=== PATIENT | female | born 1995 | race Caucasian/White ===

== ENCOUNTER 2023-01-23 07:20 | Emergency (ER) | payer BC, SELFPAY ==
[2023-01-23 07:31] VITALS: BP 111/84; PULSE 80; RESP 18; TEMP 37.1; O2SAT 97; BMI 31.6
--- NOTE | 2023-01-23 08:12 | ED.NAVMDI ---
HPI - Nausea/Vomiting/Diarrhea General Chief complaint: Nausea/Vomiting Stated complaint: chest pain, vomiting Time Seen by Provider: 01/23/23 07:59 History of Present Illness HPI Narrative: This 27-year-old female comes in reporting nausea with some vomiting over the past few days. She reports a sore throat and occasional cough. She has not had any fevers. She states that she now has some chest discomfort also. She arrives here with normal vital signs. Prior to this she was in good health. She does not report any diarrhea. She did have a surgery for a pilonidal cyst 5 months ago but has otherwise been in good health. Related Data Previous Rx's Medication Instructions Recorded pantoprazole 20 mg tablet,delayed 20 mg PO DAILY #20 tabs 01/23/23 release (Protonix) Allergies Allergy/AdvReac Type Severity Reaction Status Date / Time No Known Drug Allergies Allergy Verified 01/23/23 07:31 Review of Systems Status of ROS: Reports: 10 or more systems reviewed and unremarkable except as noted in History and below Narrative: Constitutional: No fevers, no weight gain or loss. Eyes: No discharge. No vision changes. HENT: No congestion, no sore throat, no ear pain. Cardiovascular: No palpitations. Respiratory: No shortness of breath, no wheezes, no cough. Gastrointestinal: No abdominal pain, no diarrhea. Nausea and vomiting. Genitourinary: No dysuria, no hematuria. Musculoskeletal: Normal range of motion. Skin: No rashes, no pruritis. Neurological: No dizziness, weakness, sensory change, speech change. Endo/Heme/Allergies: No bruising or bleeding. No polydipsia. Pysch: no suicidality, no anxiety, no insomnia. All other systems reviewed and are negative. PFSH PFS Social History Smoking Status: Never smoker Do you use any of these nicotine containing products: None Second hand tobacco smoke exposure: Yes How often do you have a drink containing alcohol: 2-4 times a month How many standard drinks containing alcohol do you have on a typical day: 1 or 2 How often do you have six or more drinks on one occasion: Never AUDIT-C Alcohol total score: 2 Non-prescribed substance use: denies use service: No Exam Narrative: Exam Narrative: Constitutional: Well-developed, well-nourished, no acute distress. HEENT: Normocephalic, atraumatic. Neck: Normal range of motion. Nontender. Supple. Heart: Regular. No murmurs. Normal rate. Intact distal pulses. Lungs: Clear to auscultation. No wheezes, rhonchi, or rales. Abdomen: Normal bowel sounds. Nontender. No rebound tenderness. Genitalia: Deferred. Back: No midline tenderness. Normal range of motion. Extremities: Normal range of motion. No injury. Skin: Intact. No rash. Warm. No erythema or pallor. Neurologic: No altered sensation. No weakness. Alert and oriented. Psychiatric: No suicidality. No anxiety or depression. No insomnia. Nursing notes and vitals signs are reviewed. Const: Vital Signs, click to edit/add: Vital Signs - 24 hr 01/23/23 07:31 01/23/23 09:18 01/23/23 09:26 Temperature 98.8 F Pulse Rate 92 Pulse Rate [Pulse Oximeter] 80 Respiratory Rate 18 20 Blood Pressure Blood Pressure [Ri ght Upper Arm] 111/84 Pulse Oximetry 97 97 Oxygen Delivery Me thod Room Air 01/23/23 09:30 01/23/23 09:31 Temperature Pulse Rate 88 78 Pulse Rate [Pulse Oximeter] Respiratory Rate Blood Pressure 114/74 Blood Pressure [Ri ght Upper Arm] Pulse Oximetry 97 97 Oxygen Delivery Me thod Course Vital Signs Vital signs: Initial Vital Signs Temperature 98.8 F 01/23/23 07:31 Temperature Source Temporal Artery Scan 01/23/23 07:31 Pulse Rate 80 01/23/23 07:31 Pulse Rhythm Regular 01/23/23 07:31 Respiratory Rate 18 01/23/23 07:31 Blood Pressure 111/84 01/23/23 07:31 Blood Pressure Mean 93 01/23/23 07:31 Blood Pressure Position Supine 01/23/23 07:31 Pulse Oximetry 97 01/23/23 07:31 Oxygen Delivery Method Room Air 01/23/23 07:31 Vital Signs Temperature 98.8 F 01/23/23 07:31 Pulse Rate 80 01/23/23 07:31 Respiratory Rate 18 01/23/23 07:31 Blood Pressure 111/84 01/23/23 07:31 Pulse Oximetry 97 01/23/23 07:31 Oxygen Delivery Method Room Air 01/23/23 07:31 Temperature 98.8 F 01/23/23 07:31 Pulse Rate 78 01/23/23 09:31 Respiratory Rate 20 01/23/23 09:26 Blood Pressure 114/74 01/23/23 09:31 Pulse Oximetry 97 01/23/23 09:31 Oxygen Delivery Method Room Air 01/23/23 07:31 MDM - Nausea/Vomiting/Diarrhea MDM Narrative Medical decision making narrative: This patient comes in with nausea and some vomiting and report of sore throat and discomfort in her chest. An IV was established where she did receive a L of normal saline and Zofran 4 mg. Lab results returned with reassuring findings. The patient states that she thinks that she may be having some heartburn or reflux symptoms and this seems likely. She is okay to be discharged home. I did provide a prescription for Protonix. Lab Data Labs: Lab Results 01/23/23 01/23/23 Range/Units 07:48 08:42 WBC 11.79 H (4.50-11.00) K/uL RBC 3.87 L (4.00-5.20) m/uL Hgb 12.2 (12.0-16.0) gm/dL Hct 37.6 (33.0-51.0) % MCV 97 (80-100) fL MCH 32 (26-34) pg MCHC 32 (32-36) gm/dL RDW Coeff of Enedelia 11.6 (11.5-15.5) % Plt Count 326 (140-440) K/uL Neut % (Auto) 82.9 H (42.0-72.0) % Lymph % (Auto) 9.2 L (20-44) % Lawrence % (Auto) 6.7 (0.0-11.0) % Eos % (Auto) 0.6 (0.0-7.0) % Baso % (Auto) 0.3 (0.0-3.0) % Neut # (Auto) 9.80 H (1.7-7.0) K/uL Lymph # (Auto) 1.10 (0.90-2.90) K/uL Lawrence # (Auto) 0.80 (0.00-0.90) K/UL Eos # (Auto) 0.10 (0.00-0.50) K/uL Baso # (Auto) 0.00 (0.00-0.30) K/uL Abs Immat Gran (auto) 0.00 (0.00-0.30) K/uL Imm/Tot Granulo (auto) 0.3 % Sodium 139 (135-149) mmol/L Potassium 3.8 (3.6-5.1) mmol/L Chloride 99 (96-114) mmol/L Carbon Dioxide 27 (20-32) mmol/L Anion Gap 13 (7-15) mEq/L BUN 9 (5-24) mg/dL Creatinine 0.5 (0.5-1.5) mg/dL Estimated Creat Clear 154.77 Estimated GFR 133 ml/min Glucose 99 (60-115) mg/dL Calcium 9.0 (8.4-10.6) mg/dL SARS-CoV-2 (PCR) Negative SARS-CoV-2 (Negative) Influenza Type A (PCR) Negative PCR FLU A (Negative) Influenza Type B (PCR) Negative PCR FLU B (Negative) RSV (PCR) Negative PCR RSV (Negative) ECG Data Attestation: I personally reviewed and interpreted this ECG as follows: Interpretation: Normal sinus rhythm. Rate is 82 beats per minute. There are no ST or T-wave abnormalities. Discharge Plan Discharge Clinical Impression: Gastroenteritis Patient Disposition: Home, Self-Care Condition: Stable Additional Instructions: Take medication as needed and directed. Increase diet as tolerated. Follow up with MD return if worsening. Prescriptions: New pantoprazole [Protonix] 20 mg tablet,delayed release (DR/EC) 20 mg PO DAILY Qty: 20 2RF Follow Up/Referrals: Provider,Not a Local [Primary Care Provider] - Stand Alone Forms: [employer] Info Instructions
[2023-01-23 08:39] LABS: PCR FLU A Negative PCR FLU A (Negative); PCR FLU B Negative PCR FLU B (Negative); PCR RSV Negative PCR RSV (Negative)
[2023-01-23 08:40] LABS: SARS PCR* Negative SARS-CoV-2 (Negative)
[2023-01-23] MEDS: 0.9 % SODIUM CHLORIDE 1000 ml 1,000 ML IV (08:50)
[2023-01-23] MEDS: KETOROLAC 30 MG/ML inj IVP (08:52)
[2023-01-23] MEDS: ONDANSETRON 2 MG/ML inj 4 MG IVP (08:53)
[2023-01-23 09:06] LABS: Basophils Percent Auto 0.3 % (0.0-3.0); Eosinophils Percent Auto 0.6 % (0.0-7.0); Hematocrit 37.6 % (33.0-51.0); Hemoglobin* 12.2 gm/dL (12.0-16.0); Immature Granulocytes Pct Auto 0.3 %; Lymphocytes Percent Auto 9.2 % (20-44); Mean Corpuscular HGB Conc 32 gm/dL (32-36); Mean Corpuscular Hemoglobin 32 pg (26-34); Mean Corpuscular Volume 97 fL (80-100); Monocytes Percent Auto 6.7 % (0.0-11.0); Neutrophils Percent Auto 82.9 % (42.0-72.0); Platelet Count* 326 K/uL (140-440); RDW Coefficient of Variation % 11.6 % (11.5-15.5); Red Blood Count 3.87 m/uL (4.00-5.20); White Blood Count* 11.79 K/uL (4.50-11.00)
[2023-01-23 09:07] LABS: Slide Review Reflex No
[2023-01-23 09:18] VITALS: PULSE 92; O2SAT 97
[2023-01-23 09:25] LABS: Chloride* 99 mmol/L (96-114); Potassium* 3.8 mmol/L (3.6-5.1); Sodium* 139 mmol/L (135-149)
[2023-01-23 09:26] VITALS: RESP 20
[2023-01-23 09:27] LABS: Creatinine* 0.5 mg/dL (0.5-1.5); Est. Creatinine Clearance* 154.77; Estimated Glomerular Filt Rate 133 ml/min
[2023-01-23 09:28] LABS: Anion Gap 13 mEq/L (7-15); Blood Urea Nitrogen* 9 mg/dL (5-24); Carbon Dioxide* 27 mmol/L (20-32); Glucose* 99 mg/dL (60-115)
[2023-01-23 09:30] VITALS: PULSE 88; O2SAT 97
[2023-01-23 09:31] VITALS: BP 114/74; PULSE 78; O2SAT 97
== END 2023-01-23 10:22 | disposition home or self-care (01) ==
PROVIDERS: Family Medicine; Emergency Provider Emergency Medicine Emergency Medical Services
DX: K52.9 Noninfective gastroenteritis and colitis, unspecified (principal)
CPT/HCPCS: 36415; 80048; 85025; 87631; 93005; 96374; 96375; 99283; 99284; J1885; J2405; J7030

== ENCOUNTER 2024-02-24 19:00 | Emergency (ER) | payer OTHER, SELFPAY ==
[2024-02-24 19:21] VITALS: BP 127/87; PULSE 99; RESP 20; TEMP 36.9; O2SAT 98; BMI 33.3
[2024-02-24 19:30] LABS: Appearance Urine Cloudy (Clear); Bilirubin Urine Negative (Negative); Blood Urine Trace-intact (Negative); Color Urine Yellow (Yellow); Glucose Urine Negative (Negative); Ketones Urine Negative (Negative); Leukocyte Esterase Urine 1+ (Negative); Nitrite Urine Negative (Negative); Protein Urine Negative (Negative); Specific Gravity Urine 1.025 (1.000-1.030); Urobilinogen Urine 0.2 (0.2-1.0)
[2024-02-24 19:32] LABS: Ur HCG Qualitative* Negative (Negative)
--- NOTE | 2024-02-24 19:32 | ED_ITS ---
HPI - Female Genitourinary General Chief complaint: Urogenital Problems, Female Stated complaint: Possible kidney infection Time Seen by Provider: 02/24/24 19:02 History of Present Illness HPI Narrative: This 28-year-old female comes in reporting dysuria symptoms, vaginal itching and whitish discharge, and some right flank pain. She states that some of these symptoms began as much as 3 weeks ago. She did use an [id number] cream to treat for yeast infection without much relief. She does not have any personal history of kidney stones but states there is a family history of such. She does not report any fever, nausea, vomiting, or diarrhea. Related Data Previous Rx's ?Medication ?Instructions ?Recorded pantoprazole 20 mg tablet,delayed 20 mg PO DAILY #20 tabs 01/23/23 release (Protonix) Allergies Allergy/AdvReac Type Severity Reaction Status Date / Time No Known Drug Allergies Allergy Verified 01/23/23 07:31 Review of Systems Status of ROS: Reports: 10 or more systems reviewed and unremarkable except as noted in History and below Narrative: Constitutional: No fevers, no weight gain or loss. Eyes: No discharge. No vision changes. HENT: No congestion, no sore throat, no ear pain. Cardiovascular: No chest pain, no palpitations. Respiratory: No shortness of breath, no wheezes, no cough. Gastrointestinal: No abdominal pain, no vomiting, no diarrhea. She reports some right flank and right low back pain that comes and goes in sometimes seems to be associated with voiding urine. Genitourinary: No dysuria, no hematuria. Musculoskeletal: Normal range of motion. Skin: No rashes, no pruritis. Neurological: No dizziness, weakness, sensory change, speech change. Endo/Heme/Allergies: No bruising or bleeding. No polydipsia. Pysch: no suicidality, no anxiety, no insomnia. All other systems reviewed and are negative. PFSH PFS Social History Smoking Status: Never smoker Do you use any of these nicotine containing products: None Second hand tobacco smoke exposure: Yes How often do you have a drink containing alcohol: 2-4 times a month How many standard drinks containing alcohol do you have on a typical day: 1 or 2 How often do you have six or more drinks on one occasion: Never AUDIT-C Alcohol total score: 2 Non-prescribed substance use: denies use service: No Exam Narrative: Exam Narrative: Constitutional: Well-developed, well-nourished, no acute distress. HEENT: Normocephalic, atraumatic. Neck: Normal range of motion. Nontender. Supple. Heart: Regular. No murmurs. Normal rate. Intact distal pulses. Lungs: Clear to auscultation. No chest discomfort. No wheezes, rhonchi, or rales. Abdomen: Normal bowel sounds. Nontender. No rebound tenderness. Genitalia: Deferred. Back: No midline tenderness. Normal range of motion. Extremities: Normal range of motion. No injury. Skin: Intact. No rash. Warm. No erythema or pallor. Neurologic: No altered sensation. No weakness. Alert and oriented. Psychiatric: No suicidality. No anxiety or depression. No insomnia. Nursing notes and vitals signs are reviewed. Const: Vital Signs, click to edit/add: Vital Signs - 24 hr 02/24/24 19:21 Temperature 98.5 F Pulse Rate [Left P ulse Oximeter] 99 Respiratory Rate 20 Blood Pressure [Ri ght Forearm] 127/87 Pulse Oximetry 98 Oxygen Delivery Me thod Room Air Course Vital Signs Vital signs: Initial Vital Signs Temperature 98.5 F 02/24/24 19:21 Temperature Source Temporal Artery Scan 02/24/24 19:21 Pulse Rate 99 02/24/24 19:21 Pulse Rhythm Regular 02/24/24 19:21 Respiratory Rate 20 02/24/24 19:21 Blood Pressure 127/87 02/24/24 19:21 Blood Pressure Mean 100 02/24/24 19:21 Blood Pressure Position Sitting 02/24/24 19:21 Pulse Oximetry 98 02/24/24 19:21 Oxygen Delivery Method Room Air 02/24/24 19:21 Vital Signs Temperature 98.5 F 02/24/24 19:21 Pulse Rate 99 02/24/24 19:21 Respiratory Rate 20 02/24/24 19:21 Blood Pressure 127/87 02/24/24 19:21 Pulse Oximetry 98 02/24/24 19:21 Oxygen Delivery Method Room Air 02/24/24 19:21 Temperature 98.5 F 02/24/24 19:21 Pulse Rate 99 02/24/24 19:21 Respiratory Rate 20 02/24/24 19:21 Blood Pressure 127/87 02/24/24 19:21 Pulse Oximetry 98 02/24/24 19:21 Oxygen Delivery Method Room Air 02/24/24 19:21 MDM - Female Genitourinary MDM Narrative Medical decision making narrative: This patient comes in with dysuria and abdominal symptoms as described above. A urinalysis and vaginitis probe is obtained and returns positive for urinary tract infection as well as evidence of trichomoniasis and bacterial vaginosis. There is also pending results on gonorrhea and chlamydia. The patient has normal vital signs and is in no acute distress. I did provide [facility] prescriptions for Flagyl which should cover the trichomoniasis and bacterial vaginosis and another prescription for doxycycline which should cover urinary infection symptoms and possibility of other potential positive results yet pending. Lab Data Labs: Lab Results 02/24/24 02/24/24 Range/Units 19:08 19:39 Urine Color Yellow (Yellow) Urine Appearance Cloudy A (Clear) Urine pH 6.0 (5.0-8.5) Ur Specific [place] 1.025 (1.000-1.030) Urine Protein Negative (Negative) Urine Glucose (UA) Negative (Negative) Urine Ketones Negative (Negative) Urine Blood Trace-intact A (Negative) Urine Nitrite Negative (Negative) Urine Bilirubin Negative (Negative) Urine Urobilinogen 0.2 (0.2-1.0) Ur Leukocyte Esterase 1+ A (Negative) Urine RBC 0-2 (0-2) Urine WBC 10-25 A (0-5) Ur Squamous Epith Cells Few (None-Few) Urine Bacteria Moderate A (None) Urine Trichomonas Few A (None) Urine HCG, Qual Negative (Negative) Vaginal Bacterial Vaginosis POSITIVE A (Negative) Vaginal Yanet species NOT DETECTED (No Detected) Vag C. glabrata/krusei NOT DETECTED (No Detected) Vag T. vaginalis DETECTED A (No Detected) C.trachomatis Ampl DNA Cancelled N.gonorrhoeae Ampl DNA Cancelled Discharge Plan Discharge Clinical Impression: Urinary tract infection, Bacterial vaginosis, Trichomoniasis Additional Instructions: Take medication as prescribed. Follow up with MD return if worsening. Prescriptions: No Action pantoprazole [Protonix] 20 mg tablet,delayed release (DR/EC) 20 mg PO DAILY Qty: 20 2RF Follow Up/Referrals: Provider,Not a Local [Primary Care Provider] -
--- OUTSIDE RECORDS SUMMARY | 2024-02-24 19:39 | XMS_ITS ---
Author Organization [facility] Address [address] [place] [address] Care Team Providers Care Monomer Recovery Supervisor Name Role Phone Unavailable Unavailable Unavailable Surgery Details Not on file Complications Check Surgery Details section. Procedure Estimated Blood Loss Check Surgery Details section. Procedure Findings Check Surgery Details section. Procedure Specimens Taken Check Surgery Details section.
--- OUTSIDE RECORDS SUMMARY | 2024-02-24 19:39 | XMS_ITS | Clinical Summary ---
Author Organization [facility] Address [address] [place] [address] Care Team Providers Care Assistant Credit Manager Name Role Phone Elsewhere, Pcp Primary Care Provider Unavailabl e Source Comments Patient records contain information from all sites at [facility]. For routine questions regarding patient records, call [phone] during business hours, M-F 8:00 AM - 5:00 PM Central Time. Record requests for emergency care only can be directed to [phone] at any time.[facility] Allergies Active Allergy Reactions Criticality Noted Date Comments Isothiazolinones Rash 09/21/2019 Perfume Rash 09/21/2019 Medications valACYclovir (VALTREX) 1000 mg tablet Take 2 tablets (2000mg) by mouth twice daily for 1 day as needed for cold sores. 12 tablet 1 2 Active acetaminophen (TYLENOL) 325 mg tablet Take 650 mg by mouth every 6 (six) hours as needed for pain. Active cyclobenzaprine (FLEXERIL) 10 mg tablet Take 1 tablet (10 mg total) by mouth 3 (three) times a day for 15 days. 45 tablet 3 Active gabapentin (NEURONTIN) 100 mg capsule Take 1 capsule (100 mg total) by mouth 3 (three) times a day. 90 capsule 3 Active cyclobenzaprine (FLEXERIL) 10 mg tablet Take 1 tablet (10 mg total) by mouth 3 (three) times a day as needed for muscle spasms. 30 tablet 3 Active pantoprazole (PROTONIX) 20 mg EC tablet Take 20 mg by mouth daily. 3 Active omeprazole (PriLOSEC) [address] capsule Take 1 capsule (20 mg total) by mouth every morning before breakfast for 10 days. 10 capsule 4 Active Active Problems Problem Noted Date Diagnosed Date Cyst Pilonidal 10/17/2022 Nodule Subcutaneous 07/18/2022 Overview (07/18/2022): Added automatically from request for surgery [id number] Encounters Date Type Department Care Team Description 02/17/2024 Clinical Communication Department of Family Medicine, [facility], in [place] [address] [place] [address] Angelica Colunga APRN, C.N.P., M.S.N. PCP (Change) from Last 3 Months Immunizations Name Administration Dates Next Due 4vHPV (discontinued) 11/12/2013,08/12/2013,11/24 DTaP (Infanrix, [employer]) 11/24/2003 IPV 11/24/2003 MMR 11/24/2003 Tdap 01/15/2022,08/23/2010 SHAN 08/23/2010 influenza trivalent vaccine (6 months and older)(PF) 03/20/2011 Family History Medical History Relation Name Comments Alcohol abuse Father Diabetes Father Diabetes Maternal Grandfather Relation Name Status Comments Father Maternal Grandfather Social History Tobacco Use Types Packs/Day Years Used Date Smoking Tobacco: Former Cigarettes Q uit: 10/05/2018 E-cigarettes Smokeless Tobacco: Never Tobacco Cessation:Counseling Given: No Alcohol Use Standard Drinks/Week Comments Yes 3 (1 standard drink = 0.6 oz pur e alcohol) Humiliation, Afraid, Rape, and Kick questionnair e Answer Date Recorded Within the last year, have y ou been afraid of your partner or ex-partner? No 05/05/2022 Within the last year, have y ou been humiliated or emotionally abused in other ways by your partner or ex-partner? No Within the last year, have y ou been kicked, hit, slapped, or otherwise physically hurt by your partner or ex-partner? No 05/05/2022 Within the last year, have y ou been raped or forced to have any kind of sexual activity by your partner or ex-partner? No 05/05/2022 Social Connection and Isolat ion Panel [NHANES] Answer Date Recorded In a typical week, how many times do you talk on the phone with family, friends, or neighbors? More than three times a week 05/05/2022 How often do you get togethe r with friends or relatives? Twice a week 05/05/2022 How often do you attend chur or mosque services? Never 05/05/2022 Do you belong to any clubs o r organizations such as restorationist groups, unions, fraternal or athletic groups, or school groups? No 05/05/2022 How often do you attend meet ings of the clubs or organizations you belong to? Never 05/05/2022 Are you , , di vorced, , never , or living with a partner? Never 05/05/2022 AUDIT-C Answer Date Recorded Q1: How often do you have a drink containing alc ohol? 2-4 times a month 05/05/2022 Q2: How many drinks containi ng alcohol do you have on a typical day when you are drinking? 3 or 4 05/05/2022 Q3: How often do you have si x or more drinks on one occasion? Never 05/05/2022 Overall Financial Resource Strain (CARDIA) Answe r Date Recorded How hard is it for you to pa y for the very basics like food, housing, medical care, and heating? Not hard at all 05/05/2022 PHQ-2 Answer Date Recorded PHQ-2 Score 2 06/11/2022 [facility] - Occupational Stress Questionnaire Answer Date Recorded Do you feel stress - tense, restless, nervous, or anxious, or unable to sleep at night because your mind is troubled all the time - these days? To some extent 05/05/2022 Exercise Vital Sign Answer Date Recorde d On average, how many days pe r week do you engage in moderate to strenuous exercise (like a brisk walk)? 5 days 05/05/2022 On average, how many minutes do you engage in exercise at this level? 30 min 05/05/2022 Hunger Vital Sign Answer Date Recorded Within the past 12 months, y ou worried that your food would run out before you got the money to buy more. Never true 05/05/19 Within the past 12 months, t he food you bought just didn't last and you didn't have money to get more. Never true 05/05/2022 PRAPARE - Transportation Answer Date Re corded In the past 12 months, has l ack of transportation kept you from medical appointments or from getting medications? No 04/08 In the past 12 months, has l ack of transportation kept you from meetings, work, or from getting things needed for daily living? No 05/05/2022 Housing Stability Vital Sign Answer Joel e Recorded In the last 12 months, was t here a time when you were not able to pay the mortgage or rent on time? Yes 05/05/2022 In the last 12 months, how many places have you lived? 1 05/05/2022 In the last 12 months, was t here a time when you did not have a steady place to sleep or slept in a senior care (including now)? No 05/05/2022 Nutrition Answer Date Recorded On average, how many serving s of fruits and vegetables do you eat per day (serving size is equal to 1 cup or approximately the size of a tennis ball)? 2-3 05/05/2022 Dental Answer Date Recorded Dental: Regular Dentist Yes 05/05/19 Employment Answer Date Recorded Employment status Employed and actively working without restrictions 05/05/2022 Education Answer Date Recorded What is the highest level of school you have completed or the highest degree you have received? 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 Sexual Orientation Straight 05/05/2022 4: 23 PM BUILDING WRECKER Last Filed Vital Signs Vital Sign Reading Time Taken Comments Blood Pressure 149/75 10/07/2023 4:59 PM CDT Pulse 85 10/07/2023 4:59 PM CDT Temperature 36.6 C (97.9 F) 10/07/2023 4:59 PM CDT Respiratory Rate 16 10/07/2023 4:59 PM CDT Oxygen Saturation 98% 10/07/2023 4:59 PM CDT Inhaled Oxygen Concentration - - Weight 93 kg (205 lb 0.4 oz) 10/07/2023 4:58 PM CDT Height 165.1 cm (5' 5) 08/09/2022 9:39 AM CDT Body Mass Index 34.12 08/09/2022 9:39 AM CDT Plan of Treatment Health Maintenance Due Date Last Done Comments Cervical/Vaginal Cancer Screening 1997 Hepatitis C Screening 1997 Depression Screening (Annual PHQ-2) 04/07/2023 COVID-19 Vaccine ( season) 2023 Influenza Vaccine (#1) 2024 03/20/2011 DTaP,Tdap,and Td Vaccines (7 - Td or Tdap) 01/16/2032 01/15/2022, 08/23/2010, 11/24/2003, Additional history exists Hepatitis B Vaccines Completed 12/01/1998, 03/22/1998, 1997 IPV Vaccines Completed 11/24/2003, 10/1999, 03/22/1998, Additional history exists Varicella Vaccines Completed 08/23/2010, 12/01/1998 HPV Vaccines Completed 11/12/2013, 11/2013, 11/25/2011 Chlamydia and Gonorrhea Screening Discontinued 12/12/2020 Pneumococcal vaccine (0-64 years) Aged Out No longer eligible based on patient's age to complete this topic Procedures Procedure Name Priority Date/Time Associated Diagnosis Comments CHLAMYDIA/GONORRHOE AE AMPLIFIED RNA STAT 12/12/2020 11:54 PM CDT from Last 3 Months or Most Recently Relevant to Health Maintenance Results * Chlamydia / Gonorrhoeae Amplified RNA (12/12/2020 11:54 PM CDT) Source Urine, Urine, First Voided 12/13/2020 8:19 PM CDT MKTO Chlamydia trachomatis amplified RNA Negative Negative 12/13/2020 8:19 PM CDT MKTO Source Urine, Urine, First Voided 12/13/2020 8:19 PM CDT MKTO Neisseria gonorrhoeae amplified RNA Negative Negative 12/13/2020 8:19 PM CDT MKTO Varies (Urine, First Voided) 12/12/2020 11:54 PM CDT 12/13/2020 2:31 PM CDT Edita Alivia Quintana APRN, C.N.P., D.N.P. LAB MICROBIOLO GY - GENERAL ORDERABLES Final Result [facility] [address] [place] [address], [facility] MKTO [facility] [place] [address] [place] [address] from Last 3 Months or Most Recently Relevant to Health Maintenance Insurance [facility] [place] [address] Care Teams Assistant Credit Manager Relationship Specialty Start Date End Date Elsewhere, Pcp PCP - General Internal Medicine 02/17/24
--- OUTSIDE RECORDS SUMMARY | 2024-02-24 19:39 | XMS_ITS | Clinical Summary ---
Author Organization [facility] Address [place], [place] [address] Care Team Providers Care Client Service Coordinator Name Role Phone Sherri Ceballos MD Primary Care Provider Pattie Jordan RACEBOOK WRITER Unavailable Megan Jiménez MD Unavailable Allergies Active Allergy Reactions Criticality Noted Date Comments Isothiazolinones Rash 09/21/2019 Perfume Rash 09/21/2019 Medications Medication Sig Dispensed Refills Start Date End Date Status acetaminophen (TYLENOL) 325 mg tablet Take 650 mg by mouth every 6 hours if needed. Active esomeprazole (NEXIUM) 40 mg capsuleIndications:Chr onic GERD Take 1 Capsule (40 mg) by mouth once daily before a meal. 90 Capsule 10/30/2023 Active ondansetron (ZOFRAN ODT) 4 mg disintegrating tabletIndications:Naus ea and vomiting, unspecified vomiting type Place 1 Tablet (4 mg) on the tongue every 8 hours if needed for Nausea/Vomiting . 30 Tablet 12/02/2023 Active Active Problems Problem Noted Date Diagnosed Date Attention deficit disorder with hyperactivity(31 4.01) 02/24/2007 Adjustment disorder with mixed anxiety and depre ssed mood 02/18/2007 Overview (02/18/2007): Evaulating for ADHD Encounters Date Type Department Care Team Description 11/27/2023 Telephone [facility] [address] [place], [place] [id number] Sherri Ceballos MD Letter (FOR WORK ) 11/27/2023 Nurse Triage [facility] [address] [facility] [address] Sherri Ceballos MD Error-please disregard (ERROR/) 11/25/2023 11:10 AM CDT Telemedicine [facility] [address] [place] [phone] Esmer Iniguez NP Telehealth (COVID-19 positive. ) 11/25/2023 Telephone [facility] [address] [place] [phone] Esmer Iniguez NP Letter For Work (Off work due to COVID-19) 11/25/2023 Travel from Last 3 Months Immunizations Name Administration Dates Next Due DTaP 11/24/2003, 9,03/22/1998,1997 DTaP-HIB (TriHIBIT) 06/12/1999 HIB-HepB (Comvax) 12/01/1998,03/22/1998,12/28/18 98 Human Papilloma Virus Vaccine 11/25/2011 Human Papilloma Virus Vaccin e, Unspecified 11/12/2013,08/12/2013 Inactivated Polio Vaccine 11/24/2003,10/1999,03/22/1998,1997 Influenza, IIV3 (Age >=3 years) 03/20/2011 MMR 11/24/2003,02/20/1999 Tdap 08/23/2010 Varicella Vaccine 08/23/2010,12/01/1998 Family History Medical History Relation Name Comments Alcohol/Drug Father Heart Disease Maternal Grandfather DC Good Health Mother Relation Name Status Comments Father Maternal Grandfather Mother Social History Tobacco Use Types Packs/Day Years Used Date Smoking Tobacco: Never Smokeless Tobacco: Never Tobacco Cessation:Counseling Given: Yes Alcohol Use Standard Drinks/Week Comments Yes 1 (1 standard drink = 0.6 oz pur e alcohol) occasional PHQ-2 Answer Date Recorded PHQ-2 TOTAL SCORE 0 10/30/2023 Social Connections Answer Date Recorded Frequency of Communication with Friends and Fami ly Not on file 06/27/2023 Sex and Gender Information Value Date Recorded Sex Assigned at Not on file Gender Identity Not on file Sexual Orientation Not on file Obstetrics History Last Filed Vital Signs Vital Sign Reading Time Taken Comments Blood Pressure 111/75 10/30/2023 1:37 PM CDT Pulse 86 10/30/2023 1:37 PM CDT Temperature 36.7 C (98 F) 08/18/2023 3:12 PM CDT Respiratory Rate 16 08/18/2023 3:12 PM CDT Oxygen Saturation 98% 10/30/2023 1:37 PM CDT Inhaled Oxygen Concentration - - Weight 93.7 kg (206 lb 9.6 oz) 10/30/2023 1:37 P M CDT Height 165.1 cm (5' 5) 08/05/2023 9:40 AM CDT Body Mass Index 34.38 08/05/2023 9:40 AM CDT Plan of Treatment Health Maintenance Due Date Last Done Comments HIV for age 15-65 2012 Hepatitis C screening for ag e 18-79 11/16/2015 Pap test for age 21-65 2018 Tetanus booster 08/23/2020 08/23/2010 COVID-19 vaccine series ( season) 2023 Influenza for age 9-49 12/07/2023 03/20/2011 BMI (ht and wt on same day) for age 18+ 08/04/2024 08/05/2023, 06/27/2023 Depression screening for age 12+ 10/29/2024 10/30/2023 Tdap Completed 08/23/2010 HPV series for age 9-26 Completed 11/13/19 14, 08/12/2013, 11/25/2011 Pneumococcal series for age 6-64 Aged Out No longer eligible b ased on patient's age to complete this topic Care Teams Client Service Coordinator Relationship Specialty Start Date End Date Sherri Ceballos MD [address] [place] [address] PCP - General Family Practice 05/23/11 Pattie Jordan NP [address] [place] [address] Nurse Practitioner Hematology and Oncology 08/21/23 Megan Jiménez MD [address] [place] [address] Medical Oncologist Hematology and Oncology 08/21/23
--- OUTSIDE RECORDS SUMMARY | 2024-02-24 19:39 | XMS_ITS | Referral Summary ---
Author Organization [facility] Address [address] [place] [address] Care Team Providers Care Paperhanger And Painter Name Role Phone Elsewhere, Pcp Primary Care Provider Unavailabl e Source Comments Patient records contain information from all sites at [facility]. For routine questions regarding patient records, call [phone] during business hours, M-F 8:00 AM - 5:00 PM Central Time. Record requests for emergency care only can be directed to [phone] at any time.[facility] Encounters Date Type Department Care Team Description 02/17/2024 Clinical Communication Department of Family Medicine, [facility], in [address] [phone] Angelica Colunga APRN, C.N.P., M.S.N. PCP (Change) from Last 3 Months Allergies Active Allergy Reactions Criticality Noted Date [...] (07/18/2022): Added automatically from request for surgery [id number] Immunizations Name Administration Dates Next Due 4vHPV (discontinued) 11/12/2013,08/12/2013,11/24 DTaP (Infanrix, Tripedia) 11/24/2003 IPV 11/24/2003 MMR 11/24/2003 Tdap 01/15/2022,08/23/2010 SHAN 08/23/2010 influenza trivalent vaccine (6 months and older)(PF) 03/20/2011 Social History Tobacco Use Types Packs/Day Years [...] 05/05/2022 How often do you attend chur ch or sabianist services? Never 05/05/2022 Do you belong to any clubs o r organizations such as synagogue groups, unions, fraternal or athletic groups, or [...] Answer Date Recorded PHQ-2 Score 2 06/11/2022 [facility] - Occupational Stress Questionnaire Answer Date Recorded [...] the money to buy more. Never true 01/29/20 23 Within the past 12 months, t he [...] place to sleep or slept in a correction (including now)? No 05/05/2022 Nutrition Answer Date [...] Sex Assigned at Female 05/05/2022 4:23 PM MIDDLEWARE SYSTEMS ARCHITECT Legal Sex Female 10:12 PM MIDDLEWARE SYSTEMS ARCHITECT Gender Identity Female 05/05/2022 4:23 PM MIDDLEWARE SYSTEMS ARCHITECT Sexual Orientation Straight 05/05/2022 4: 23 PM MIDDLEWARE SYSTEMS ARCHITECT Last Filed Vital Signs Vital Sign Reading [...] 08/09/2022 9:39 AM CDT Plan of Treatment Not on file Procedures Procedure Name Priority Date/Time Associated Diagnosis [...] PM CDT 12/13/2020 2:31 PM CDT Edita Quintana APRN, C.N.P., D.N.P. LAB MICROBIOLO GY - GENERAL ORDERABLES Final Result [facility] [address] [place] [address], [facility] [place] [address] [place] [phone] from Last 3 Months or Most Recently Relevant to Health Maintenance Insurance [facility] [place] [address] Care Teams Paperhanger And Painter Relationship Specialty Start Date End Date Elsewhere, Pcp PCP - General Internal Medicine 02/17/24
--- OUTSIDE RECORDS SUMMARY | 2024-02-24 19:40 | XMS_ITS | Encounter Summary ---
Author Organization [facility] Address [address] [place] [address] Care Team Providers Care Cardiovascular Technician Name Role Phone Elsewhere, Pcp Primary Care Provider Unavailabl e Reason for Visit * Reason Onset Date Comments PCP 02/17/2024 Change Encounter Details Date Type Department Care Team ([facility] st Contact Info) Description 02/17/2024 Clinical Communication Department of Family Medicine, [facility], in [address] [phone] Angelica Colunga APRN, C.N.P., M.S.N. [address] [place] [phone] PCP (Change) Social History Tobacco Use Types Packs/Day Years Used Date Smoking Tobacco: Former Cigarettes Q uit: 10/05/2018 E-cigarettes Smokeless Tobacco: Never Alcohol Use Standard Drinks/Week Comments Yes 3 [...] How often do you attend chur or baptist services? Never 05/05/2022 Do you belong to any clubs o r organizations such as taoism groups, unions, fraternal or athletic groups, or [...] Answer Date Recorded PHQ-2 Score 2 06/11/2022 [facility] - Occupational Stress [...] place to sleep or slept in a retirement (including now)? No 05/05/2022 Nutrition Answer Date [...] Sex Assigned at Female 05/05/2022 4:23 PM SENIOR DATA INTEGRATION DEVELOPER Legal Sex Female 10:12 PM SENIOR DATA INTEGRATION DEVELOPER Gender Identity Female 05/05/2022 4:23 PM SENIOR DATA INTEGRATION DEVELOPER Sexual Orientation Straight 05/05/2022 4: 23 PM SENIOR DATA INTEGRATION DEVELOPER documented as of this encounter Plan of Treatment Not on file documented as of this encounter Visit Diagnoses Not on filedocumented in this encounter Care Teams Cardiovascular Technician Relationship Specialty Start Date End Date Elsewhere, Pcp PCP - General Internal Medicine 02/17/24 documented as of this encounter
[2024-02-24 19:44] LABS: RBC Urine 0-2 (0-2)
[2024-02-24 19:45] LABS: Bacteria Urine Moderate; Squamous Epithelial Cell Urine Few (None-Few); Trichomonas Urine Few
[2024-02-24 20:49] LABS: Bacterial Vaginosis* POSITIVE (Negative); Candida glab/krus NOT DETECTED (No Detected); Candida species NOT DETECTED (No Detected); Trichomonas vaginalis DETECTED (No Detected)
[2024-02-24 21:19] LABS: Chlamydia DNA Amplified* NOT DETECTED (No Detected); GC DNA Amplified* NOT DETECTED (No Detected)
== END 2024-02-24 21:18 | disposition home or self-care (01) ==
LOC: ED 19:38
PROVIDERS: Emergency Provider Emergency Medicine Emergency Medical Services
DX: N39.0 Urinary tract infection, site not specified (principal); N76.0 Acute vaginitis; A59.9 Trichomoniasis, unspecified
CPT/HCPCS: 81001; 81003; 81025; 81513; 87086; 87481; 87491; 87591; 87661; 99284

== ENCOUNTER 2024-10-20 22:27 | Emergency (ER) | payer MEDICAID, SELFPAY ==
--- OUTSIDE RECORDS SUMMARY | 2024-07-04 19:00 | XMS_ITS | Continuity of Care Document ---
Author Organization [facility] Address [address] [address] [place] [address] Phone Care Team Providers Care Pad Making Machine Operator Name Role Phone Link Joseluis YANCEY Unavailable Unavailable Procedures Procedure Date Level Iv-surg Path Gross/micro Advance Directives Directive Yes / No Effective Date File Name No Information Encounters Encounter Description Practice Location Reason(s) For Visit Diagnoses Date Provider Providers Copied on Encounter [facility], [address] [address], [place], [place], [id number], [place] tel:[phone] [facility] Path Lab No Information Link MD Huggins. [address] [facility], [place], [place], [id number], [place]. tel:[phone] Referring Provider: Jia Munguia MD, [address] [place] [address], [address]. tel:[phone] Family History Family Member Type Diagnosis Age At Onset No Information Payers Payer name Insurance type Covered democrat ID Izaiah wills(s) [facility] [id number] Social History Type Description Quantity Date Captured Comments Sex Female Smoking Status No Information Chief Complaint And Reason For Visit No Information Reason For Referral Reason For Referral No Information History Of Present Illness Encounter Date Complaint History Of Prese nt Illness No Information Functional Status Date Functional Assessmen t No Information Instructions Date Instruction Additional Infor mation No Information Assessments Type Assessment Date No Information Patient Care Teams Name Effective Dates (start - stop) Status Members No Information
--- OUTSIDE RECORDS SUMMARY | 2024-07-04 19:00 | XMS_ITS | Continuity of Care Document ---
Author Organization [facility] Address [address] [address] [place] [address] Phone Care Team Providers Care Travel Agent Name Role Phone Link Joseluis YANCEY Unavailable Unavailable Procedures Procedure Date Level Iv-surg Path Gross/micro Advance Directives Directive Yes / No Effective Date File Name No Information Encounters Encounter Description Practice Location Reason(s) For Visit Diagnoses Date Provider Providers Copied on Encounter [facility], [address] [address], [place], [place], [id number], [place] tel:[phone] [facility] Path Lab No Information Link MD Huggins. [address] [facility], [place], [place], [id number], [place]. tel:[phone] Referring Provider: Jia Munguia MD, [address] [place] [address], [address]. tel:[phone] Family History Family Member Type Diagnosis Age At Onset No Information Payers Payer name Insurance type Covered constitution party ID Izaiah wills(s) [facility] [id number] Social History Type Description Quantity Date Captured [...]
--- OUTSIDE RECORDS SUMMARY | 2024-10-06 20:42 | XMS_ITS | Encounter Summary ---
Author Organization [facility] Address [address] [place] [address] Care Team Providers Care Research Compliance Specialist Name Role Phone Elsewhere, Pcp Primary Care Provider Unavailabl e Reason for Visit * Reason Comments Painful Urination Patient reports burn ing with urination since Friday night. Encounter Details Date Type Department Care Team (Late st Contact Info) Description 10/06/2024 8:42 PM CDT - 10/06/2024 9:20 PM CDT Emergency [place] [facility] [place] [phone] Nemesio Hdz, P.A.-C. [address] [place] [phone] Urinary Tract Infection Site Not Specified (Primary Dx); Vaginitis Trichomonas; Acute Candidiasis Of Vulva And Vagina Discharge Disposition: Home or Self Care Social History Tobacco Use Types Packs/Day Years [...] by your partner or ex-partner? No 05/05/2022 Hunger Vital Sign Answer Date Recorded Within the past 12 months, y ou worried that your food would run out before you got the money to buy more. Never true 05/05/19 23 Within the past 12 months, t [...] place to sleep or slept in a fdc (including now)? No 05/05/2022 Education Answer Date Recorded What is the highest level of school you have completed or the highest degree you have received? Some college, no degree 05/05/2022 Comments No Sex and Gender Information Value Date Recorded Sex Assigned at Female 05/05/2022 4:23 PM CODING TECH Legal Sex Female 10:12 PM CODING TECH Gender Identity Female 05/05/2022 4:23 PM CODING TECH Sexual Orientation Straight 05/05/2022 4: 23 PM CODING TECH documented as of this encounter Last Filed Vital Signs Vital Sign Reading Time Taken Comments Blood Pressure 113/73 10/06/2024 8:43 PM CDT Pulse 94 10/06/2024 8:43 PM CDT Temperature 36.8 C (98.2 F) 10/06/2024 8:43 PM CDT Respiratory Rate 17 10/06/2024 8:43 PM CDT Oxygen Saturation 97% 10/06/2024 8:43 PM CDT Inhaled Oxygen Concentration - - Weight 83 kg (182 lb 15.7 oz) 10/06/2024 8:44 PM CDT Height - - Body Mass Index 30.45 08/09/2022 9:39 AM CDT documented in this encounter Discharge Instructions * Attachments The following attachments cannot be sent through Care Everywhere. * Urinary Tract Infection Female (Portuguese) documented in this encounter Medications at Time of Discharge acetaminophen (TYLENOL) 325 mg tablet Take 650 mg by mouth every 6 (six) hours as needed for pain. valACYclovir (VALTREX) 1000 mg tablet Take 2 tablets (2000mg) by mouth twice daily for 1 day as needed for cold sores. 12 tablet 1 04/02/2022 fluconazole (Diflucan) 150 mg tabletIndications :Acute Candidiasis Of Vulva And Vagina Take 1 tablet (150 mg total) by mouth once for 1 dose. 1 tablet 10/07/2024 10/07/2024 metroNIDAZOLE (FlagyL) 500 mg tabletIndications :Vaginitis Trichomonas Take 1 tablet (500 mg total) by mouth 2 (two) times a day for 7 days. 14 tablet 10/07/2024 10/14/2024 nitrofurantoin monohydrate (Macrobid) 100 mg capsuleIndication s:Urinary Tract Infection Site Not Specified Take 1 capsule (100 mg total) by mouth 2 (two) times a day for 7 days. 13 capsule 10/06/2024 10/13/2024 documented as of this encounter ED Notes * Nemesio Hdz P.A.-C. - 10/06/2024 8:45 PM CDT SUBJECTIVE CHIEF COMPLAINT/REASON FOR VISIT Painful Urination (Patient reports burning with urination since Friday night.) HISTORY OF PRESENT ILLNESS History provided by: Patient senior structural engineer needed/used: no 28-year-old female presents to the emergency department with concern of urinary tract infection. Patient is otherwise healthy. Patient reports burning urination for the past 4 days. No abdominal, flank, or back pain. No fever or chills. Patient states a year or so ago, she had similar symptoms. At that time she was diagnosed with Trichomonas, BV, yeast infection, and a urinary tract infection. She would like evaluation for all of the above. Patient has had small amount of vaginal discharge. Shedenies any pelvic pain. She denies risk of . REVIEW OF SYSTEMS OBJECTIVE Initial Vitals Temperature 10/06/242042 36.8 ??C Pulse Rate 10/06/242042 94 Heart Rate -- Resp Rate 10/06/242042 17 Blood Pressure 10/06/242042 113/73 SpO2 10/06/242042 97 % Pain Score 10/06/242043 0 - No pain PHYSICAL EXAMINATION Constitutional: Nursing note and vitals reviewed. She appears not lethargic. No distress. HENT: Head: Normocephalic. Eyes: Conjunctivae are normal. Cardiovascular: Normal rate and regular rhythm. Pulmonary/Chest: Effort normal. There is normal air entry. Musculoskeletal: General: Normal range of motion. Cervical back: Normal range of motion. Neurological: Alert and oriented to person, place, and time. Skin: Skin is warm and dry. She is not diaphoretic. Psychiatric: She has a normal mood and affect. Behavior is normal. ASSESSMENT/PLAN Assessment and Plan Urinary tract infection-patient with a few days of urinary symptoms, consistent with prior UTIs. Patient also reports a history of Trichomonas, BV, and vaginal yeast infections at the same time. She declined pelvic exam. However she does consent for self swab, and results are pending at time of dictation. I do not think she needs empirical management for STI at this point. Her urinalysis is concerning for infection with urine cultures pending. Patient will be treated with Macrobid 100 mg b.i.d.x7 days. As mentioned, further vaginal swabs are pending. Patient is advised to check the [place] portal or she will be notified if positive results. If any worsening symptoms patient should return to the emergency department for reassessment. ED Course as of 10/06/242107Oct 06, [id number] Nitrite, U(!): Positive Final Diagnoses: as of 10/06/242107 Urinary Tract Infection Site Not Specified Nemesio Hdz P.A.-C. 10/06/242108 documented in this encounter Plan of Treatment Not on file documented as of this encounter Procedures Procedure Name Priority Date/Time Associated Diagnosis Comments VAGINITIS PANEL, AMPLIFIED RNA STAT 10/06/2024 9:03 PM CDT TRICHOMONAS VAGINALIS AMPLIFIED RNA STAT 10/06/2024 9:03 PM CDT CHLAMYDIA/GONORRHOEA E AMPLIFIED RNA STAT 10/06/2024 9:03 PM CDT URINALYSIS WITH MICROSCOPIC IF INDICATED, U STAT 10/06/2024 8:49 PM CDT HC URINALYSIS AUTO WO MICRO STAT 10/06/2024 8:49 PM CDT BACTERIAL CULTURE, AEROBIC + SUSC, URINE STAT 10/06/2024 8:49 PM CDT documented in this encounter Results * (ABNORMAL) Trichomonas vaginalis Amplified RNA (10/06/2024 9:03 PM CDT) Source Swab, Vagina 10/09/2024 8:37 PM CDT [facility] Trichomonas vaginalis amplified RNA Positive(A ) Negative 10/09/2024 8:37 PM CDT [facility] Swab (Vagina) 10/06/2024 9:0 3 PM CDT 10/09/2024 8:09 AM CDT us Nemesio Hdz P.A.-C. LAB MICROBIOLOGY - GENERAL ORDERABLES Final Result [facility] [address] [place] [address] [facility] [address] GOMEZ [address] [place] [address] * Chlamydia / Gonorrhoeae Amplified RNA (10/06/2024 9:03 PM CDT) Source Swab, Vagina 10/07/2024 1:17 PM CDT [facility] Chlamydia trachomatis amplified RNA Negative Negative 10/07/2024 1:17 PM CDT [facility] Source Swab, Vagina 10/07/2024 1:17 PM CDT [facility] Neisseria gonorrhoeae amplified RNA Negative Negative 10/07/2024 1:17 PM CDT [facility] Swab (Vagina) 10/06/2024 9:0 3 PM CDT 10/07/2024 8:57 AM CDT us Nemesio Hdz P.A.-C. LAB MICROBIOLOGY - GENERAL ORDERABLES Final Result [facility] [address] [place] [phone], [facility] [address] [place] [phone] * (ABNORMAL) Vaginitis Panel, Amplified RNA (10/06/2024 9:03 PM CDT) Bacterial Vaginosis, Amplified RNA Negative Negative 10/07/2024 12:45 PM CDT [facility] Comment: A negative result does not exclude infection. Assay result is based on relative amounts of Lactobacillus (L. gasseri, L. crispatus, L. jensenii), Gardnerella vaginalis and Atopobium vaginae. Yanet species, Amplified RNA Positive(A) Negative 10/07/2024 1:00 PM CDT [facility] Comment: Yanet albicans, C. tropicalis, C. parapsilosis and/or C. dubliniensis RNA detected. Individual organisms are not identified or reported by this assay. Results should be interpreted alongside clinical presentation. Up to 21% of asymptomatic patients may be positive by this assay. Yanet glabrata, Amplified RNA Negative Negative 10/07/2024 1:00 PM CDT [facility] Comment: No RNA detected from Yanet glabrata. A negative result does not exclude infection. Trichomonas vaginalis Amplified RNA Positive(A) Negative 10/07/2024 1:00 PM CDT [facility] Swab (Vagina) 10/06/2024 9:0 3 PM CDT 10/07/2024 8:57 AM CDT us Nemesio Hdz P.A.-C. LAB MICROBIOLOGY - GENERAL ORDERABLES Final Result [facility] [address] [place] [phone], [facility] [address] [phone] * (ABNORMAL) Microscopic Automated (10/06/2024 8:49 PM CDT) White Blood Cells 4-10 /hpf 10/06/2024 9:09 PM CDT [facility] Comment: ----REFERENCE VALUE---- Males: 0-3 Females: 0-10 Unknown: 0-10 Red Blood Cells Occ-2 0 - 2 /hpf 10/06/2024 9:09 PM CDT [facility] Squamous Cells Occ-3 /hpf 10/06/2024 9:09 PM CDT [facility] Bacteria Present(A) None Seen 10/06/2024 9:09 PM CDT [facility] Urine 10/06/2024 8:49 PM CDT 10/06/2024 8:51 PM CDT us Nemesio Hdz P.A.-C. LAB URINE ORDERABLES Final Result Performing Organization Address City/[facility]/ZIP Co de Phone Number [facility] [address] [place] [address], [facility] MNMN [facility] [place] in [address] [address] * (ABNORMAL) Bacterial Culture, Aerobic + Susceptibility, Urine (10/06/2024 8:49 PM CDT) Urine Culture ESCHERICHIA COLI 10,000-100,000 cfu/mL (A) 10/09/2024 10:14 AM CDT [facility] Urine (Urine, Midstream) 10/06/2024 8:49 PM CDT 10/07/2024 8:58 AM CDT Comment:Specimen Source Site : Urine Narrative Organism Antibiotic Method Susceptibility Escherichia coli Ampicillin SUSCEPTIBILITY, YOLANDA (MCG/ML) 4 mcg/mL: Susceptible Escherichia coli Piperacillin + Tazobactam SUSCE PTIBILITY, YOLANDA (MCG/ML) <=4 mcg/mL: Susceptible Escherichia coli Cefazolin SUSCEPTIBILITY, YOLANDA (MCG/ML) <=4 mcg/mL: Susceptible Comment: The interpretation applies to uncomplicated urinary tract infections only. It also applies to these oral cephalosporins: cefuroxime, cephalexin, and cefprozil. Escherichia coli Ceftazidime SUSCEPTIBILITY, YOLANDA (MCG/ML) <=1 mcg/mL: Susceptible Escherichia coli Ceftriaxone SUSCEPTIBILITY, YOLANDA (MCG/ML) <=1 mcg/mL: Susceptible Escherichia coli Cefepime SUSCEPTIBILITY, YOLANDA (MCG/ML) <=1 mcg/mL: Susceptible Escherichia coli Aztreonam SUSCEPTIBILITY, YOLANDA (MCG/ML) <=1 mcg/mL: Susceptible Escherichia coli Ertapenem SUSCEPTIBILITY, YOLANDA (MCG/ML) <=0.5 mcg/mL: Susceptible Escherichia coli Meropenem SUSCEPTIBILITY, YOLANDA (MCG/ML) <=0.25 mcg/mL: Susceptible Escherichia coli Gentamicin SUSCEPTIBILITY, YOLANDA (MCG/ML) <=1 mcg/mL: Susceptible Escherichia coli Tobramycin SUSCEPTIBILITY, YOLANDA (MCG/ML) <=1 mcg/mL: Susceptible Escherichia coli Levofloxacin SUSCEPTIBILITY, YOLANDA (MCG/ML) <=0.12 mcg/mL: Susceptible Escherichia coli Nitrofurantoin SUSCEPTIBILITY, YOLANDA (MCG/ML) <=16 mcg/mL: Susceptible Escherichia coli Trimethoprim + Sulfamethoxazole SUSCEPTIBILITY, YOLANDA (MCG/ML) <=20 mcg/mL: Susceptible us Nemesio Hdz P.A.-C. LAB MICROBIOLOGY - GENERAL ORDERABLES Final Result [facility] [address] [place] [address], [facility] ECL[facility] in [address] [address] * (ABNORMAL) Urinalysis with Microscopic if Indicated: Urine, Midstream (10/06/2024 8:49 PM CDT) Source Urine, Urine, Midstream 10/06/2024 9:07 PM CDT [facility] Clarity Clear Clear 10/06/2024 9:07 PM CDT [facility] Color Patrizia 10/06/2024 9:07 PM CDT [facility] Comment: ----REFERENCE VALUE---- Colorless Yellow Patrizia Blood Negative Negative 10/06/2024 9:07 PM CDT [facility] Nitrite Positive(A) Negative 10/06/2024 9:07 PM CDT [facility] Leukocyte Esterase Trace(A) Negative 10/06/2024 9:07 PM CDT [facility] Protein Trace mg/dL 10/06/2024 9:07 PM CDT [facility] Comment: ----REFERENCE VALUE---- Negative Trace Glucose Negative Negative mg/dL 10/06/2024 9:07 PM CDT [facility] Ketone Trace(A) Negative mg/dL 10/06/2024 9:07 PM CDT [facility] Bilirubin Small(A) Negative 10/06/2024 9:07 PM CDT M[facility] pH 5.5 5.0 - 8.0 10/06/2024 9:07 PM CDT [facility] Specific [place] 1.028 1.001 - 1.035 10/06/2024 9:07 PM CDT [facility] Urobilinogen 1.0 0.2 - 1.0 mg/dL 10/06/2024 9:07 PM CDT [facility] Urine (Urine, Midstream) 10/06/2024 8:49 PM CDT 10/06/2024 8:51 PM CDT us Nemesio Hdz P.A.-C. LAB URINE ORDERABLES Final Result [facility] [address] [place] [address], [facility] MNMN [facility] [place] in [address] [address] documented in this encounter Visit Diagnoses Diagnosis Urinary Tract Infection Site Not Specified- Primary Vaginitis Trichomonas Acute Candidiasis Of Vulva And Vagina documented in this encounter Administered Medications Inactive Administered Medications - up to 3 most recent administrations Medication Order MAR Action Action Date Dose Rate Site nitrofurantoin monohydrate capsule 100 mg (Macrobid) 100 mg, oral, Once, On Fri10/06/24 at 2108, For 1 dose, Drug Monitoring Program: Pharmacist to adjust medication dosing based on indication and drug clearance factors., Indications: Lower UTI, Non-CatheterIndications:Lower UTI, Non-Catheter Given 10/06/2024 9:13 PM CDT 100 mg documented in this encounter Active and Recently Administered Medications Times are shown in CDT. Scheduled Medication Order 10/04/2024 10/05/2024 10/06/2024 nitrofurantoin monohydrate capsule 100 mg (Macrobid) (COMPLETED) 100 mg, oral, Once, On Fri10/06/24 at 2108, For 1 dose, Drug Monitoring Program: Pharmacist to adjust medication dosing based on indication and drug clearance factors., Indications: Lower UTI, Non-Catheter 2112 (Given - Provid er: Alexander Casas R.N.) documented in this encounter Care Teams Research Compliance Specialist Relationship Specialty Start Date End Date Elsewhere, Pcp PCP - General Internal Medicine 02/17/24 documented as of this encounter
--- OUTSIDE RECORDS SUMMARY | 2024-10-20 22:29 | XMS_ITS | Encounter Summary ---
Author Organization [facility] Address [address] [place] [address] Care Team Providers Care Firearms Model Maker Name Role Phone Elsewhere, Pcp Primary Care Provider Unavailabl e Encounter Details Date Type Department Care Team (Late st Contact Info) Description 10/07/2024 Results Follow-Up [facility] [address] [place] [phone] Brea Roman, R.N. Microscopic Automated, Vaginitis Panel, Amplified RNA, Chlamydia / Gonorrhoeae Amplified RNA, Bacterial Culture, Aerobic + Susceptibility, Urine Social History Tobacco Use Types Packs/Day Years [...] place to sleep or slept in a [place] facility (including now)? No 05/05/2022 Education Answer Date Recorded What is the highest level of school you have completed or the highest degree you have received? Some college, no degree 05/05/2022 Comments No Sex and Gender Information Value Date Recorded Sex Assigned at Female 05/05/2022 4:23 PM UNMANNED EQUIPMENT OPERATOR Legal Sex Female 10:12 PM UNMANNED EQUIPMENT OPERATOR Gender Identity Female 05/05/2022 4:23 PM UNMANNED EQUIPMENT OPERATOR Sexual Orientation Straight 05/05/2022 4: 23 PM UNMANNED EQUIPMENT OPERATOR documented as of this encounter Plan of Treatment Not on file documented as of this encounter Visit Diagnoses Not on filedocumented in this encounter Care Teams Firearms Model Maker Relationship Specialty Start Date End Date Elsewhere, Pcp PCP - General Internal Medicine 02/17/24 documented as of this encounter
--- OUTSIDE RECORDS SUMMARY | 2024-10-20 22:29 | XMS_ITS | Clinical Summary ---
Author Organization [facility] Address [address] [place] [address] Care Team Providers Care Slide Maker Name Role Phone Elsewhere, Pcp Primary Care Provider Unavailabl e Source Comments Patient records contain information from all sites at [facility]. For routine questions regarding patient records, call [phone] during business hours, M-F 8:00 AM - 5:00 PM Central Time. Record requests for emergency care only can be directed to [phone] at any time.[facility] Allergies Active Allergy Reactions Criticality Noted Date Comments Isothiazolinones Rash 09/21/2019 Perfume Rash 09/21/2019 Medications valACYclovir (VALTREX) 1000 mg tablet Take 2 tablets (2000mg) by mouth twice daily for 1 day as needed for cold sores. 12 tablet 1 2 Active acetaminophen (TYLENOL) 325 mg tablet Take 650 mg by mouth every 6 (six) hours as needed for pain. Active gabapentin (NEURONTIN) 100 mg capsule Take 1 capsule (100 mg total) by mouth 3 (three) times a day. 90 capsule 3 10/07/19 25 Discontinu ed(Therapy completed) cyclobenzaprine (FLEXERIL) 10 mg tablet Take 1 tablet (10 mg total) by mouth 3 (three) times a day as needed for muscle spasms. 30 tablet 3 10/07/19 25 Discontinu ed(Therapy completed) pantoprazole (PROTONIX) 20 mg EC tablet Take 20 mg by mouth daily. 3 10/07/19 25 Discontinu ed(Therapy completed) omeprazole (PriLOSEC) [address] capsule Take 1 capsule (20 mg total) by mouth every morning before breakfast for 10 days. 10 capsule 4 10/07/19 25 Discontinu ed(Therapy completed) nitrofurantoin monohydrate (Macrobid) 100 mg capsuleIndicati ons:Urinary Tract Infection Site Not Specified Take 1 capsule (100 mg total) by mouth 2 (two) times a day for 7 days. 13 capsule 5 10/14/19 25 metroNIDAZOLE (FlagyL) 500 mg tabletIndicatio ns:Vaginitis Trichomonas Take 1 tablet (500 mg total) by mouth 2 (two) times a day for 7 days. 14 tablet 5 10/15/19 25 fluconazole (Diflucan) 150 mg tabletIndicatio ns:Acute Candidiasis Of Vulva And Vagina Take 1 tablet (150 mg total) by mouth once for 1 dose. 1 tablet 5 10/08/19 25 Active Problems Problem Noted Date Diagnosed Date Cyst Pilonidal 10/17/2022 Nodule Subcutaneous 07/18/2022 Overview (07/18/2022): Added automatically from request for surgery [id number] Encounters Date Type Department Care Team Description 10/07/2024 Results Follow-Up [facility] [address] [place] [phone] Brea Roman, R.N. Microscopic Automated, Vaginitis Panel, Amplified RNA, Chlamydia / Gonorrhoeae Amplified RNA, Bacterial Culture, Aerobic + Susceptibility, Urine 10/06/2024 8:42 PM CDT - 10/06/2024 9:20 PM CDT Emergency [facility] [address] [place] [phone] Nemesio Hdz, P.A.-C. Urinary Tract Infection Site Not Specified (Primary Dx); Vaginitis Trichomonas; Acute Candidiasis Of Vulva And Vagina Discharge Disposition: Home or Self Care from Last 3 Months Immunizations Immunization Administration Dates Next Due 4vHPV (discontinued) 11/12/2013,08/12/2013,11/24 [...] place to sleep or slept in a longterm (including now)? No 05/05/2022 Education Answer Date Recorded What is the highest level of school you have completed or the highest degree you have received? Some college, no degree 05/05/2022 Comments No Sex and Gender Information Value Date Recorded Sex Assigned at Female 05/05/2022 4:23 PM ASSURANCE AUDITOR Legal Sex Female 10:12 PM ASSURANCE AUDITOR Gender Identity Female 05/05/2022 4:23 PM ASSURANCE AUDITOR Sexual Orientation Straight 05/05/2022 4: 23 PM ASSURANCE AUDITOR Last Filed Vital Signs Vital Sign Reading Time Taken Comments Blood Pressure 113/73 10/06/2024 8:43 PM CDT Pulse 94 10/06/2024 8:43 PM CDT Temperature 36.8 C (98.2 F) 10/06/2024 8:43 PM CDT Respiratory Rate 17 10/06/2024 8:43 PM CDT Oxygen Saturation 97% 10/06/2024 8:43 PM CDT Inhaled Oxygen Concentration - - Weight 83 kg (182 lb 15.7 oz) 10/06/2024 8:44 PM CDT Height 165.1 cm (5' 5) 08/09/2022 9:39 AM CDT Body Mass Index 30.45 08/09/2022 9:39 AM CDT Plan of Treatment Health Maintenance Due Date Last Done Comments Cervical/Vaginal Cancer Screening 1997 Hepatitis C Screening 1997 COVID-19 Vaccine ( season) 2023 Depression Screening (Annual PHQ-2) 04/07/2024 Influenza Vaccine (#1) 2025 03/20/2011 DTaP,Tdap,and Td Vaccines (7 - Td or Tdap) 01/16/2032 01/15/2022, 08/23/2010, 11/24/2003, Additional history exists Hepatitis B Vaccines Completed 12/01/1998, 03/22/1998, 1997 IPV Vaccines Completed 11/24/2003, 10/1999, 03/22/1998, Additional history exists Varicella Vaccines Completed 08/23/2010, 12/01/1998 HPV Vaccines Completed 11/12/2013, 11/2013, 11/25/2011 Chlamydia and Gonorrhea Screening Discontinued 10/06/2024, 12/12/2020 Pneumococcal vaccine (0-49 years) Aged Out No longer eligible based on patient's age to complete this topic Procedures Procedure Name Priority Date/Time Associated Diagnosis Comments TRICHOMONAS VAGINALIS AMPLIFIED RNA STAT 10/06/2024 9:03 PM CDT CHLAMYDIA/GONORRHOEA E AMPLIFIED RNA STAT 10/06/2024 9:03 PM CDT VAGINITIS PANEL, AMPLIFIED RNA STAT 10/06/2024 9:03 PM CDT HC URINALYSIS AUTO WO MICRO STAT 10/06/2024 8:49 PM CDT URINALYSIS WITH MICROSCOPIC IF INDICATED, U STAT 10/06/2024 8:49 PM CDT BACTERIAL CULTURE, AEROBIC + SUSC, URINE STAT 10/06/2024 8:49 PM CDT from Last 3 Months Results * (ABNORMAL) Vaginitis Panel, Amplified RNA (10/06/2024 [...] 3 PM CDT 10/07/2024 8:57 AM CDT Nemesio Hdz P.A.-C. LAB MICROBIOLOGY - GENERAL ORDERABLES Final Result [facility] [address] [place] [address], [facility] [address] [place] [phone] * (ABNORMAL) Trichomonas vaginalis Amplified RNA (10/06/2024 9:03 PM CDT) Source Swab, Vagina 10/09/2024 8:37 PM CDT [facility] Trichomonas vaginalis amplified RNA Positive(A ) Negative 10/09/2024 8:37 PM CDT [facility] Swab (Vagina) 10/06/2024 9:0 3 PM CDT 10/09/2024 8:09 AM CDT Nemesio Hdz P.A.-C. LAB MICROBIOLOGY - GENERAL ORDERABLES Final Result [facility] [place] [address] [place] [address] [facility] [address] GOME[place] [address] [place] [id number] * Chlamydia / Gonorrhoeae Amplified RNA (10/06/2024 [...] LAB MICROBIOLOGY - GENERAL ORDERABLES Final Result [facility] [address] [place] [address], [facility] [address] [place] [phone] * (ABNORMAL) Urinalysis with Microscopic if Indicated: [...] 8.0 10/06/2024 9:07 PM CDT [facility] Specific [place] 1.028 1.001 - 1.035 10/06/2024 9:07 PM CDT [facility] Urobilinogen 1.0 0.2 - 1.0 mg/dL 10/06/2024 9:07 PM CDT [facility] Urine (Urine, Midstream) 10/06/2024 8:49 PM CDT 10/06/2024 8:51 PM CDT us Nemesio Hdz P.A.-C. LAB URINE ORDERABLES Final Result Performing Organization Address City/[facility]/ZIP Co de Phone Number [facility] [address] [place] [address] MNMN [facility] [place] [address] * (ABNORMAL) Microscopic Automated (10/06/2024 8:49 PM [...] URINE ORDERABLES Final Result Performing Organization Address City/[facility]/ZIP Co de Phone Number [facility] [address] [place] [address], [facility] MNMN [facility] [place] [address] * (ABNORMAL) Bacterial Culture, Aerobic + Susceptibility, [...] LAB MICROBIOLOGY - GENERAL ORDERABLES Final Result [facility] [address] [place] [address], [facility] in [address] [address] from Last 3 Months Insurance [employer] Care Teams Slide Maker Relationship Specialty Start Date End Date Elsewhere, Pcp PCP - General Internal Medicine 02/17/24
--- OUTSIDE RECORDS SUMMARY | 2024-10-20 22:29 | XMS_ITS | Clinical Summary ---
Author Organization [employer] [facility] Address [address] [place] [id number] Care Team Providers Care Manager Transport Name Role Phone Sherri Ceballos MD Primary Care Provider Pattie Jordan VOUCHER CLERK Unavailable Megan Jiménez MD Unavailable Allergies Active Allergy Reactions Criticality Noted Date Comments Isothiazolinones Rash 09/21/2019 Perfume Rash 09/21/2019 Medications acetaminophen (TYLENOL) 325 mg tablet Take 650 mg by mouth every 6 hours if needed. Active esomeprazole (NEXIUM) 40 mg capsuleIndications: Chronic GERD Take 1 Capsule (40 mg) by mouth once daily before a meal. 90 Capsule 4 Active ondansetron (ZOFRAN ODT) 4 mg disintegrating tabletIndications:N ausea and vomiting, unspecified vomiting type Place 1 Tablet (4 mg) on the tongue every 8 hours if needed for Nausea/Vomit ing. 30 Tablet 4 Active valACYclovir (VALTREX) 1 gram tabletIndications:C old sore Take 2 Tablets (2 g) by mouth two times daily. Take 2 tablets (2000mg) by mouth twice daily for 1 day as needed for cold sores. 4 Tablet 5 4 Active benzonatate (TESSALON) 100 mg capsuleIndications: Acute cough Take 1 Capsule (100 mg) by mouth 3 times daily if needed for Cough. 30 Capsule 5 Active Active Problems Problem Noted Date Diagnosed Date Attention deficit disorder with hyperactivity(31 4.01) 02/24/2007 Adjustment disorder with mixed anxiety and depre ssed mood 02/18/2007 Overview (02/18/2007): Evaulating for ADHD Immunizations Immunization Administration Dates Next Due DTaP 11/24/2003, 9,03/22/1998,1997 DTaP-HIB (TriHIBIT) 06/12/1999 HIB-HepB (Comvax) 12/01/1998,03/22/1998,12/28/18 98 Human Papilloma Virus Vaccine 11/12/2013, 014,11/25/2011 Human Papilloma Virus Vaccin e, Unspecified 11/12/2013,08/12/2013 INFLUENZA, IIV3 PF (AGE >= 6 MO) 03/20/2011 Inactivated Polio Vaccine 11/24/2003,10/1999,03/22/1998,1997 Influenza, IIV3 (Age >=3 years) 03/20/2011 MMR 11/24/2003,02/20/1999 Tdap 01/15/2022,08/23/2010 Varicella Vaccine 08/23/2010,12/01/1998 Family History Medical History Relation Name Comments Alcohol/Drug Father Heart Disease Maternal Grandfather MS Good Health Mother Relation Name Status Comments Father Maternal Grandfather Mother Social History Tobacco Use Types Packs/Day Years Used Date Smoking Tobacco: Never Smokeless Tobacco: Never Tobacco Cessation:Counseling Given: Yes Alcohol Use Standard Drinks/Week Comments Yes 1 (1 standard drink = 0.6 oz pur e alcohol) occasional PHQ-2 Answer Date Recorded PHQ-2 TOTAL SCORE 0 10/30/2023 Social Connections Answer Date Recorded Do you often feel lonely or isolated from those around you? 0 03/29/2024 Financial Resource Strain Answer Date R ecorded Difficulty of Paying Living Expenses 3 03/29/2024 Difficulty of Paying Living Expenses Not on file 03/29/2024 Food Insecurity Answer Date Recorded Do you worry your food will run out before you are able to buy more? 1 03/29/2024 Transportation Needs Answer Date Record ed Does lack of transportation keep you from medica l appointments? 1 03/29/2024 Does lack of transportation keep you from work, meetings or getting things that you need? 1 03/29/2024 Housing Stability Answer Date Recorded What is your housing situation today? 1 03/29/2024 Utilities Answer Date Recorded Do you have trouble paying f or utilities (for example, heat, electricity, water, phone)? 1 03/29/2024 Comments No Sex and Gender Information Value Date Recorded Sex Assigned at Not on file Legal Sex Female 5:47 AM BULB PLAN[employer] Gender Identity Not on file Sexual Orientation Not on file Obstetrics History Last Filed Vital Signs Vital Sign Reading Time Taken Comments Blood Pressure 135/71 03/29/2024 4:02 PM BULB PLANTER Pulse 86 03/29/2024 4:02 PM BULB PLANTER Temperature 36.8 C (98.3 F) 03/29/2024 4:02 PM BULB PLANTER Respiratory Rate 16 03/29/2024 4:02 PM BULB PLANTER Oxygen Saturation 97% 03/29/2024 4:02 PM BULB PLANTER Inhaled Oxygen Concentration - - Weight 93.7 kg (206 lb 9.6 oz) 10/30/2023 1:37 P M CDT Height 165.1 cm (5' 5) 08/05/2023 9:40 AM CDT Body Mass Index 34.38 08/05/2023 9:40 AM CDT Plan of Treatment Health Maintenance Due Date Last Done Comments HIV for age 15-65 2012 Hepatitis C screening for age 18-79 11/16/2015 Pap test for age 21-65 2018 COVID-19 vaccine series ( season) 2023 BMI (ht and wt on same day) for age 18+ 08/04/2024 08/05/2023, 06/27/2023 Depression screening for age 12+ 10/29/2024 10/30/2023 Influenza Vaccine (#1) 2024 03/20/2011, 2010 Tetanus booster 01/16/2032 01/15/2022, 08/23/2010 Hepatitis B series for 19+ Completed 12/01, 03/22/1998, 1997 HPV series for age 9-26 Completed 11/13/19 14, 11/12/2013, 08/12/2013, Additional history exists Pneumococcal series for age 6-49 Aged Out No longer eligible based on patient's age to complete this topic Insurance [place] MEDICAID Care Teams Manager Transport Relationship Specialty Start Date End Date Sherri Ceballos MD [address] [place] [id number] PCP - General Family Practice 05/23/11 Pattie Jordan NP [address] [place] [address] Nurse Practitioner Hematology and Oncology 08/21/23 Megan Jiménez MD [address] [place] [address] Medical Oncologist Hematology and Oncology 08/21/23
[2024-10-20 22:35] VITALS: BP 126/80; PULSE 86; RESP 16; TEMP 37; O2SAT 98; BMI 31.8
[2024-10-21] MEDS: ONDANSETRON ODT 4 MG TAB PO (02:32)
[2024-10-21] MEDS: DOXYCYCLINE HYCLATE 100 MG PO (02:43)
[2024-10-21] MEDS: cefTRIAXone 500 MG VIAL IM (02:43)
[2024-10-21] MEDS: LIDOCAINE 1% 5 ml (pf) 5 ML VIAL 1 ML IM (02:43)
[2024-10-21] MEDS: RALTEGRAVIR POTASSIUM 400 MG TABLET PO ×2 (02:45→02:46)
[2024-10-21] MEDS: EMTRICITABINE/TENOFOVIR 200-300MG TABLET 1 TAB PO (02:51)
[2024-10-21] MEDS: ONDANSETRON ODT 4 MG TAB 8 MG PO (02:54)
[2024-10-21 02:58] VITALS: BP 121/74; PULSE 80; RESP 16; TEMP 37; O2SAT 98
--- NOTE | 2024-10-21 11:22 | ED.NURSE ---
Addendum entered by Noemy Cool RN 10/21/24 13:55: Pharmacist at [facility] called ED to report that no new prescription was yet received and delivery cut off time will [id number]. I called [facility] nurse office and no solution to getting situation resolved had been found. [facility] RN was now going to contact her coal handling supervisor. Addendum entered by Noemy Cool RN 10/21/24 13:44: [facility] nurse contacted [place] dual licensed [place] [facility]. Original Note: Was contacted by [facility] pharmacist, Jadyn at [phone]. She reports that patient's insurance will not cover medications. She is apparently on Medicaid [place] and they will not fill an RX ordered by [place] doctors. I spoke to RN at [facility] and relayed this information. She is looking into situation and will call back with an update and outcome.
== END 2024-10-21 03:31 | disposition home or self-care (01) ==
PROVIDERS: Emergency Provider Family Medicine
DX: T76.21XA Adult sexual abuse, suspected, initial encounter (principal)
CPT/HCPCS: A9270; J0696